=== PATIENT | female | born 1990 | race Two or more races ===

== ENCOUNTER 2019-02-03 05:31 | Emergency (ER) | payer OTHER ==
[~2019-02-03] VITALS: Ht 154.9 cm; Wt 49.9 kg
[2019-02-03] MEDS ORDERED: SYNTHROID50 MCG (05:37)
== END 2019-02-03 15:32 | disposition home or self-care (01) ==
LOC: ER 05:31
DX: N20.0 Calculus of kidney (principal); R10.31 Right lower quadrant pain

== ENCOUNTER 2019-10-15 11:29 | Inpatient (IN) | payer OTHER ==
[~2019-10-15] VITALS: Ht 154.9 cm; Wt 57.2 kg
[~2019-10-15 11:29] MED LIST: SYNTHROID50 MCG
[2019-10-15] MEDS ORDERED: PRENATAL TABLE1 EAC1 PO (11:52)
[2019-10-15] MEDS ORDERED: ASA81 MG PO (11:53)
== END 2019-10-17 13:27 | disposition home or self-care (01) | DRG 807 ==
LOC: SURG-SUITE 11:29 → LDR 11:29 → SURG-SUITE 17:08
PROVIDERS: ADMIT Obstetrics & Gynecology; ATTEND Obstetrics & Gynecology
PROC: 10E0XZZ Delivery of Products of Conception, External Approach (ICD-10-PCS; principal; 2019-10-15)
PROC: 4A1HXFZ Monitoring of Products of Conception, Cardiac Rhythm, External Approach (ICD-10-PCS; 2019-10-15)
PROC: 3E033VJ Introduction of Other Hormone into Peripheral Vein, Percutaneous Approach (ICD-10-PCS; 2019-10-15)
DX: O70.0 First degree perineal laceration during delivery (principal); Z37.0 Single live birth; Z3A.38 38 weeks gestation of pregnancy; Z20.828 Contact with and (suspected) exposure to other viral communicable diseases

== ENCOUNTER 2020-07-09 19:16 | Emergency (ER) | payer OTHER ==
[~2020-07-09] VITALS: Ht 157.5 cm; Wt 52.2 kg
[~2020-07-09 19:16] MED LIST changes: +ASA81 MG PO; +PRENATAL TABLE1 EAC1 PO
[2020-07-09] MEDS ORDERED: IVERMECTIN3 MG PO ×2 (21:45→21:48)
== END 2020-07-09 22:12 | disposition home or self-care (01) ==
LOC: ER 19:16
DX: U07.1 COVID-19 (principal); B34.9 Viral infection, unspecified

== ENCOUNTER 2020-11-08 10:07 | Emergency (ER) | payer OTHER ==
[~2020-11-08] VITALS: Ht 154.9 cm; Wt 54.4 kg
[~2020-11-08 10:07] MED LIST changes: +IVERMECTIN3 MG PO
== END 2020-11-08 18:31 | disposition home or self-care (01) ==
LOC: ER 10:07
DX: N20.0 Calculus of kidney (principal); N39.0 Urinary tract infection, site not specified

== ENCOUNTER 2020-12-31 17:01 | Emergency (ER) | payer OTHER ==
[~2020-12-31] VITALS: Ht 157.5 cm; Wt 54.4 kg
[2020-12-31] MEDS ORDERED: MOTRIN (17:27)
[2020-12-31] MEDS ORDERED: BENTYL (17:28)
[2020-12-31] MEDS ORDERED: TAMS0.4C PO (23:30)
[2020-12-31] MEDS ORDERED: CIPRO500 MG PO (23:30)
[2020-12-31] MEDS ORDERED: ULTRACET PO (23:38)
== END 2020-12-31 23:24 | disposition home or self-care (01) ==
LOC: ER 17:01
DX: N39.0 Urinary tract infection, site not specified (principal); R10.32 Left lower quadrant pain; M54.89 Other dorsalgia

== ENCOUNTER 2025-01-11 15:44 | Emergency (ER) | payer OTHER ==
[~2025-01-11] VITALS: Ht 154.9 cm; Wt 54.4 kg
[~2025-01-11 15:44] MED LIST changes: +BENTYL; +CIPRO500 MG PO; +MOTRIN; +TAMS0.4C PO; +ULTRACET PO
[2025-01-11] MEDS ORDERED: TRIAMCINOLONE ACETONIDE 40 MG/ML VIAL IM STA (16:41)
== END 2025-01-11 21:13 | disposition home or self-care (01) ==
LOC: ER 15:44
DX: G51.0 Bell's palsy (principal)